=== PATIENT | female | born 1965 | race African-American/Black ===

== ENCOUNTER 2016-11-08 23:10 | Inpatient (IN) | payer BC ==
[~2016-11-08] VITALS: Ht 157.5 cm; Wt 107.5 kg
--- NOTE | ~2016-11-08 | H ---
[facility] [place] [address] HISTORY AND PHYSICAL Name: LUCA COURTNEY Room #: [facility]-P ADM IN M.R.#: [id number] Admission: 11/09/16 Attend Phys: Radhames Samaniego MD Discharge: Date of : 67 Report #: [id number] THIS REPORT FOR: //name// CC: Manny Samaniego ATTENDING PHYSICIAN: MD Charly PRIMARY CARE PHYSICIAN: Manny Shelby MD CHIEF COMPLAINT: Shortness of breath and wheezing. HISTORY OF PRESENT ILLNESS: The patient is a 51-year-old female who states she has been dealing with a cough for the last 6 weeks. She sees her primary care physician and has been diagnosed with bronchitis and has been through 2 different rounds of antibiotics. She has finished clarithromycin and Z-Carlos and last week was placed on a prednisone pack and Tessalon and albuterol inhaler. Despite these medications and some yrco-uer-[id number] Coricidin, she continues to have a cough. She actually feels like her cough is getting worse. It is mostly nonproductive, but at times it will produce some clear sputum. Her symptoms got worse today after she was outside. She started feeling very tight and wheezy and her cough was worse as well. She started having chills today with sweats but she did not check her temperature. She does have some seasonal allergies, but normally does not affect her breathing . She denies any prior diagnosis of asthma. She has never been a smoker. She has been on lisinopril for the last year and has never had any problems with cough associated with it. In the ER, she was given multiple albuterol treatments and continues to cough and has significant wheezing. Therefore, she has been admitted for pneumonia. She has vomited multiple times after coughing . PAST MEDICAL HISTORY: Hypertension, diabetes, hyperlipidemia. PAST SURGICAL HISTORY: Eye surgery x 2, ectopic , right clavicle removed, x 2, debridement, cervical fusion, myomectomy, D and C x 3, lysis of adhesions x 2, exploratory laparotomy x 2, left carpal tunnel release, and hysterectomy. ALLERGIES: AMOXICILLIN causes hives; CEPHALOSPORIN cause itching, MEPERIDINE and MORPHINE cause itching; PROPOXYPHENE causes elevated blood pressure; AUGMENTIN causes hives and JANUVIA causes dehydration, UTI, and confusion. HOME MEDICATIONS: Metformin 500 mg b.i.d., estradiol 1 mg daily, citalopram 10 mg daily, Lipitor 20 mg at bedtime, verapamil 120 mg daily, and lisinopril 5 mg daily. SOCIAL HISTORY: The patient is a never smoker. Drinks alcohol occasionally. She lives at home with her spouse and 2 children. 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 FAMILY HISTORY: Insignificant to the situation. REVIEW OF SYSTEMS: The patient denies any recent exertional chest pain or palpitations. Denies any prior coronary artery disease. Denies any diarrhea. She says her diabetes is normally well controlled. All other 12-point review of systems was reviewed with the patient, otherwise negative unless stated in the HPI. PHYSICAL EXAMINATION: GENERAL: The patient is an alert female in no acute distress. VITAL SIGNS: Temperature is 36.1, heart rate 100, respirations 22, blood pressure is 168/122, oxygen is 95% on room air. HEENT: PERRLA. Sclerae are nonicteric. Oral mucosa is pink and moist. NECK: Supple, no JVD noted. CARDIOVASCULAR: Normal S1, S2. No murmurs, rubs or gallops. RESPIRATORY: Breath sounds are with expiratory wheezing throughout. She does have very frequent harsh but nonproductive cough and her breathing is somewhat labored. ABDOMEN: Obese, soft, nontender, nondistended with positive bowel sounds. VASCULAR: No edema noted. Pedal pulses are 2+. NEUROLOGIC: The patient is alert and oriented x 3. Speech is clear. She is moving all extremities equally. No focal neuro deficits noted. LABS AND DIAGNOSTICS: WBC is 6.1, hemoglobin 12.1, platelets 276. Sodium 140, potassium 4.0, BUN is 11, creatinine 0.9, glucose 152. Liver enzymes are negative. BNP is 15. Lipase 136. D-dimer 0.69. ABG showed a pH of 6.1. Hemoglobin is 12.1 and platelets are 276. UA is negative. ASSESSMENT AND PLAN: 1. Acute asthma exacerbation with bronchitis. The patient denies any prior history of asthma. She will need pulmonary function test at some point. For now, we will treat it with IV steroids and schedule breathing treatments. We will add Singulair and Tussionex. We will try to obtain a sputum culture if possible and send for viral respiratory panel. 2. Diabetes type 2. Blood sugars stable. Continue home medications. 3. Hypertension. Blood pressure is elevated. Continue home meds. 4. Hyperlipidemia. Continue home meds. 5. Deep venous thrombosis prophylaxis. Start Lovenox. [facility] [address] [place] [address] HISTORY AND PHYSICAL Name: LUCA COURTNEY Room #: 408-P ADM IN M.R.#: [id number] Admission: 11/09/16 Attend Phys: Radhames Samaniego MD Discharge: Date of : 67 Report #: [id number] We will continue to follow the patient closely throughout the hospitalization and make changes based on clinical status. <ELECTRONICALLY SIGNED> By: SESAR Webb 11/11/16 [id number] SESAR Webb /nt
[~2016-11-08 23:10] MED LIST: CLEOCIN HCL300 MG PO; DEXILANT30 MG PO; ESTRACE0.5 MG; FLEXERIL PO; GLUCOPHAGE500 MG PO; GLUCOTROL5 MG PO; HYDROCODON-ACE1 EAC7 PO; IBUPROFEN 600600 M1 PO; LEVAQUIN 750 M750 MG PO; LEVEMIR SUBQ; LIPITOR 10 MG10 M1 PO; LISINOPRIL5 MG PO; MACROBID 100 M100 M1 PO; MOBIC15 MG PO; NORCO 5-325 TA1 EACH PO; NOVOLOG100 UNIT/1 SQ; PERCOCET 5-3251 EACH PO; RIFAMPIN 300 M300 M1 PO; VERAPAMIL ER120 M1 PO; VERAPAMIL ER120 MG PO; VERAPAMIL ER200 MG PO; XANAX 0.25 MG0.25 MG PO
[2016-11-08 23:11] VITALS: BP 168/122
[2016-11-08 23:43] LABS: URINE BILIRUBIN NEGATIVE (Negative); URINE BLOOD NEGATIVE (Negative); URINE COLOR YELLOW; URINE GLUCOSE-RANDOM* NEGATIVE (Negative); URINE KETONES NEGATIVE (Negative); URINE NITRITE NEGATIVE (Negative); URINE PROTEIN (DIPSTICK) NEGATIVE (Negative); URINE SPECIFIC GRAVITY <= 1.005 (1.003-1.035); URINE UROBILINOGEN 0.2 E.U./dl (0.2-1.0)
[2016-11-08 23:45] LABS: ABSOLUTE NEUTROPHILS 1.5 thou/uL (1.4-8.2); BASOPHILS 0.9 % (0.0-2.0); EOSINOPHILS 10.2 % (0.0-3.0); HEMATOCRIT 36.3 % (37.0-47.0); HEMOGLOBIN 12.1 gm/dL (12.0-15.0); LYMPHOCYTES 53.3 % (24.0-44.0); MCHC 33.2 g/dL (28.0-37.0); MCV 81.2 fL (80.0-100.0); MONOCYTES 10.5 % (1.0-8.0); PLATELET COUNT 276 thou/uL (150-400); POLYS 25.1 % (36.0-66.0); RBC 4.48 mil/uL (4.20-5.00); RDW 14.8 % (10.5-14.5); WBC 6.1 thou/uL (4.0-11.0)
[2016-11-08 23:47] LABS: MANUAL DIFF NO
[2016-11-09 00:03] LABS: ALKALINE PHOSPHATASE 125 U/L (46-116); ANION GAP 11 mmol/L (7-16); BUN 11 mg/dL (7-18); CALCIUM 9.4 mg/dL (8.5-10.1); CHLORIDE 102 mmol/L (98-107); CO2 27 mmol/L (21-32); CREATININE 0.9 mg/dL (0.6-1.3); DIRECT BILIRUBIN < 0.1 mg/dL (<0.1-0.3); GLUCOSE 162 mg/dL (70-99); SGOT 11 U/L (15-37); SGPT 13 U/L (30-65); SODIUM 140 mmol/L (136-145); TOTAL BILIRUBIN 0.2 mg/dL (<0.1-1.0); TOTAL PROTEIN 7.4 g/dL (6.4-8.2)
[2016-11-09] MEDS ORDERED: METFORMIN HCL500 MG PO (00:17)
[2016-11-09] MEDS ORDERED: CELEXA10 MG PO (00:18)
[2016-11-09 01:23] VITALS: BP 147/81
[2016-11-09 08:00] VITALS: BP 126/72
[2016-11-09 12:00] VITALS: BP 110/65
[2016-11-09 16:00] VITALS: BP 117/68
[2016-11-09 20:30] VITALS: BP 127/64
[2016-11-10 04:02] VITALS: BP 113/75
[2016-11-10 08:00] VITALS: BP 117/70
[2016-11-10 16:00] VITALS: BP 116/71
[2016-11-10 20:14] VITALS: BP 142/78
[2016-11-11 04:10] VITALS: BP 139/84
[2016-11-11 06:46] LABS: HEMATOCRIT 34.8 % (37.0-47.0); HEMOGLOBIN 11.1 gm/dL (12.0-15.0); MCH 25.9 pg (26.0-34.0); MCV 81.2 fL (80.0-100.0); RBC 4.28 mil/uL (4.20-5.00); RDW 15.5 % (10.5-14.5); WBC 17.3 thou/uL (4.0-11.0)
[2016-11-11 06:56] LABS: CALCIUM 9.4 mg/dL (8.5-10.1); MAGNESIUM 1.6 mg/dL (1.8-2.4); POTASSIUM 4.3 mmol/L (3.5-5.1)
[2016-11-11 08:19] VITALS: BP 146/93
[2016-11-11 19:40] VITALS: BP 145/86
[2016-11-12 03:55] VITALS: BP 142/89
[2016-11-12 05:23] LABS: ABSOLUTE NEUTROPHILS 12.7 thou/uL (1.4-8.2); BASOPHILS 0.4 % (0.0-2.0); HEMATOCRIT 35.3 % (37.0-47.0); HEMOGLOBIN 11.4 gm/dL (12.0-15.0); LYMPHOCYTES 10.2 % (24.0-44.0); MANUAL DIFF NO; MCH 26.1 pg (26.0-34.0); MCHC 32.2 g/dL (28.0-37.0); MCV 81.1 fL (80.0-100.0); MONOCYTES 2.9 % (1.0-8.0); PLATELET COUNT 271 thou/uL (150-400); POLYS 86.5 % (36.0-66.0); RBC 4.36 mil/uL (4.20-5.00); RDW 15.1 % (10.5-14.5); WBC 14.7 thou/uL (4.0-11.0)
[2016-11-12 05:33] LABS: CALCIUM 9.2 mg/dL (8.5-10.1); POTASSIUM 4.1 mmol/L (3.5-5.1)
[2016-11-12 08:00] VITALS: BP 142/95
[2016-11-12 15:36] VITALS: BP 138/95
[2016-11-12 19:00] VITALS: BP 139/98
[2016-11-12 21:00] VITALS: BP 139/98
[2016-11-12 22:06] LABS: INFLUENZA B Negative (Negative); METAPNEUMOVIRUS Negative (Negative)
[2016-11-13 04:00] VITALS: BP 137/91
[2016-11-13 08:29] VITALS: BP 149/99
[2016-11-13 16:00] VITALS: BP 141/98
[2016-11-13 20:28] VITALS: BP 143/90
[2016-11-14 04:20] VITALS: BP 163/97
[2016-11-14 04:44] LABS: HEMOGLOBIN 11.9 gm/dL (12.0-15.0); MCH 26.5 pg (26.0-34.0); MCV 80.4 fL (80.0-100.0); RBC 4.48 mil/uL (4.20-5.00); RDW 14.8 % (10.5-14.5); WBC 10.6 thou/uL (4.0-11.0)
[2016-11-14 04:45] LABS: CALCIUM 8.8 mg/dL (8.5-10.1); POTASSIUM 4.4 mmol/L (3.5-5.1)
[2016-11-14 08:00] VITALS: BP 135/89
[2016-11-14] MEDS ORDERED: LORATIDINE 10 M10 M1 PO (12:52)
[2016-11-14] MEDS ORDERED: HYDROCODONE-CH473 M1 PO (12:53)
[2016-11-14] MEDS ORDERED: MUCINEX TA600 MG/TA1 PO (12:54)
[2016-11-14] MEDS ORDERED: PREDNISONE 10 M10 M1 PO (12:55)
[2016-11-14 13:32] VITALS: BP 135/89
== END 2016-11-14 18:06 | disposition home or self-care (01) | DRG 202 ==
LOC: ER 23:10 → EROBS 11-09 01:11 → 4N 11-09 01:11 → ER 11-09 01:27 → 4N 11-09 01:27
PROVIDERS: Family Medicine; Hospitalist; Internal Medicine; Nurse Practitioner; Nurse Practitioner Acute Care
DX: J20.8 Acute bronchitis due to other specified organisms (principal); E44.0 Moderate protein-calorie malnutrition; J45.901 Unspecified asthma with (acute) exacerbation; Z68.41 Body mass index [BMI] 40.0-44.9, adult; F32.9 Major depressive disorder, single episode, unspecified; J06.9 Acute upper respiratory infection, unspecified; I10 Essential (primary) hypertension; E11.8 Type 2 diabetes mellitus with unspecified complications; E78.5 Hyperlipidemia, unspecified; Z79.84 Long term (current) use of oral hypoglycemic drugs; Z90.710 Acquired absence of both cervix and uterus; Z90.49 Acquired absence of other specified parts of digestive tract; Z88.1 Allergy status to other antibiotic agents; Z88.4 Allergy status to anesthetic agent; Z88.8 Allergy status to other drugs, medicaments and biological substances; Z79.899 Other long term (current) drug therapy
CPT/HCPCS: 10091

== ENCOUNTER 2016-12-24 21:27 | Emergency (ER) | payer BC ==
[~2016-12-24] VITALS: Ht 157.5 cm; Wt 99.3 kg
[~2016-12-24 21:27] MED LIST changes: +CELEXA10 MG PO; +HYDROCODONE-CH473 M1 PO; +LORATIDINE 10 M10 M1 PO; +METFORMIN HCL500 MG PO; +MUCINEX TA600 MG/TA1 PO; +PREDNISONE 10 M10 M1 PO
[2016-12-24] MEDS ORDERED: DOXYCYCLINE 10100 MG PO (21:39)
[2016-12-24] MEDS ORDERED: NASACORT10.8 ML NS (21:39)
[2016-12-24] MEDS ORDERED: MOBIC7.5 MG PO (23:26)
[2016-12-24 23:42] VITALS: BP 144/90
== END 2016-12-24 23:44 | disposition home or self-care (01) ==
LOC: ER 21:27
DX: S90.31XA Contusion of right foot, initial encounter (principal); S80.01XA Contusion of right knee, initial encounter; M79.672 Pain in left foot; I10 Essential (primary) hypertension; E78.5 Hyperlipidemia, unspecified; E11.9 Type 2 diabetes mellitus without complications; Z98.890 Other specified postprocedural states; Z90.710 Acquired absence of both cervix and uterus; Z91.048 Other nonmedicinal substance allergy status; Z88.1 Allergy status to other antibiotic agents; Z88.5 Allergy status to narcotic agent; Z88.8 Allergy status to other drugs, medicaments and biological substances; W01.0XXA Fall on same level from slipping, tripping and stumbling without subsequent striking against object, initial encounter; Y93.89 Activity, other specified; Y92.89 Other specified places as the place of occurrence of the external cause; Y99.8 Other external cause status

== ENCOUNTER 2017-01-26 20:05 | Emergency (ER) | payer BC ==
[~2017-01-26] VITALS: Ht 157.5 cm; Wt 94.3 kg
[~2017-01-26 20:05] MED LIST changes: +DOXYCYCLINE 10100 MG PO; +MOBIC7.5 MG PO; +NASACORT10.8 ML NS
[2017-01-26] MEDS ORDERED: PULMOZYME1 MG/1 ML IH (20:18)
[2017-01-26] MEDS ORDERED: DULERA 100 MCG/13 GM INH (20:19)
[2017-01-26] MEDS ORDERED: CIPRO500 MG PO (20:19)
[2017-01-26 20:36] LABS: URINE BILIRUBIN NEGATIVE (Negative); URINE BLOOD NEGATIVE (Negative); URINE COLOR YELLOW; URINE GLUCOSE-RANDOM* 3+ (Negative); URINE KETONES 1+ (Negative); URINE NITRITE NEGATIVE (Negative); URINE PROTEIN (DIPSTICK) NEGATIVE (Negative); URINE UROBILINOGEN 0.2 E.U./dl (0.2-1.0)
[2017-01-26 20:47] LABS: BACTERIA None Seen /HPF (None Seen); CASTS None Seen /LPF (None Seen); CRYSTALS None Seen /LPF (None Seen); SQUAMOUS 0-3 Few /LPF (0-3); URINE RBC None Seen /HPF (0-2); URINE WBC None Seen /HPF (0-5)
[2017-01-26 21:01] LABS: ABSOLUTE NEUTROPHILS 4.7 thou/uL (1.4-8.2); BASOPHILS 0.4 % (0.0-2.0); EOSINOPHILS 0.5 % (0.0-3.0); HEMATOCRIT 41.2 % (37.0-47.0); HEMOGLOBIN 13.5 gm/dL (12.0-15.0); LYMPHOCYTES 26.6 % (24.0-44.0); MCH 27.2 pg (26.0-34.0); MCHC 32.7 g/dL (28.0-37.0); MCV 83.2 fL (80.0-100.0); MONOCYTES 5.4 % (1.0-8.0); PLATELET COUNT 332 thou/uL (150-400); POLYS 67.1 % (36.0-66.0); RBC 4.95 mil/uL (4.20-5.00); RDW 15.7 % (10.5-14.5)
[2017-01-26 21:03] LABS: MANUAL DIFF NO
[2017-01-26 21:52] LABS: CALCIUM 9.3 mg/dL (8.5-10.1); POTASSIUM 4.5 mmol/L (3.5-5.1)
[2017-01-26 23:57] VITALS: BP 133/91
== END 2017-01-27 00:03 | disposition home or self-care (01) ==
LOC: ER 20:05
PROVIDERS: Emergency Medicine
DX: E11.9 Type 2 diabetes mellitus without complications (principal); T38.0X5A Adverse effect of glucocorticoids and synthetic analogues, initial encounter; I10 Essential (primary) hypertension; E78.00 Pure hypercholesterolemia, unspecified; Z90.710 Acquired absence of both cervix and uterus; Z98.890 Other specified postprocedural states; Z88.1 Allergy status to other antibiotic agents; Z88.8 Allergy status to other drugs, medicaments and biological substances; Z88.5 Allergy status to narcotic agent; Y92.89 Other specified places as the place of occurrence of the external cause

== ENCOUNTER → 2018-06-15 | Outpatient (CLI) | payer BC ==
[~2018-06-15] MED LIST changes: +CIPRO500 MG PO; +DULERA 100 MCG/13 GM INH; +PULMOZYME1 MG/1 ML IH
== END ==
LOC: RAD 13:43
DX: Z12.31 Encounter for screening mammogram for malignant neoplasm of breast (principal)

== ENCOUNTER → 2019-05-19 | Outpatient (CLI) | payer BC | LOC: BC 01:30 | DX: Z12.31 Encounter for screening mammogram for malignant neoplasm of breast (principal) ==

== ENCOUNTER → 2019-05-25 | Outpatient (CLI) | payer BC | LOC: RAD 14:11 | DX: N63.10 Unspecified lump in the right breast, unspecified quadrant (principal) ==

== ENCOUNTER → 2020-05-22 | Outpatient (CLI) | payer BC | LOC: RAD 07:39 | PROVIDERS: ATTEND Obstetrics & Gynecology | DX: Z12.31 Encounter for screening mammogram for malignant neoplasm of breast (principal) ==

== ENCOUNTER → 2021-02-11 | Outpatient (CLI) | payer BC | LOC: SJCVCIMAG 07:15 | PROVIDERS: ATTEND Internal Medicine | DX: I49.3 Ventricular premature depolarization (principal); I10 Essential (primary) hypertension; R00.2 Palpitations ==

== ENCOUNTER → 2021-05-31 | Outpatient (CLI) | payer BC | LOC: BC 08:40 | PROVIDERS: ATTEND Obstetrics & Gynecology | DX: Z12.31 Encounter for screening mammogram for malignant neoplasm of breast (principal) ==

== ENCOUNTER → 2021-06-11 | Outpatient (CLI) | payer BC | LOC: ULTRA 07:51 | PROVIDERS: ATTEND Internal Medicine | DX: E04.1 Nontoxic single thyroid nodule (principal); R74.8 Abnormal levels of other serum enzymes; K76.0 Fatty (change of) liver, not elsewhere classified; N28.1 Cyst of kidney, acquired ==